=== PATIENT | female | born 1965 | race Caucasian/White ===

== ENCOUNTER 2018-03-13 13:51 | Observation (INO) | payer BC ==
--- NOTE | 2018-03-13 15:10 | RAD ---
INDICATION: Chest pain. COMPARISON: There are no relevant prior studies available for comparison. TECHNIQUE: Dual-energy PA views of the chest were obtained. FINDINGS: The heart is within normal limits in size. Mediastinal and hilar contours appear within normal limits. The lungs are clear. No pleural effusion or pneumothorax is seen. IMPRESSION: NO EVIDENCE FOR ACTIVE CARDIOPULMONARY DISEASE.
[2018-03-13] MEDS ORDERED: Aspirin 81 mg CHEW TAB* 81 MG TAB.CHEW PO ONE (15:11)
--- NOTE | 2018-03-13 15:34 | ED ---
HPI Chest Pain - HPI Summary HPI Summary: Patient is a 53-year-old male who presents emergency department for left shoulder pain and left-sided chest pain that started earlier today. 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 Pain is worse with movement. She states she did take ibuprofen which mildly improved symptoms. She denies associated shortness of breath, diaphoresis, nausea, vomiting. Medical history of obesity, hypothyroidism, hyperglycemia, high cholesterol and borderline high blood pressure. Patient states she has a strong family history for cardiac disease and her grandson father on her mother's side had a heart attack in his 30s. Symptoms are moderate in severity. Movement makes symptoms worse. Rest makes symptoms better. - History of Current Complaint Chief Complaint: EDChestWallPain Time Seen by Provider: 03/13/18 14:28 Hx Obtained From: Patient Pain Intensity: 2 - Allergy/Home Medications Home Medications: Home Medications Dapagliflozin Propanediol [Farxiga] 5 mg PO QAM 03/13/18 [History Confirmed ] Levothyroxine TAB* [Synthroid TAB*] 100 mcg PO DAILY 03/13/18 [History Confirmed 03/13/18] Simvastatin TAB(NF) [Zocor(NF)] 20 mg PO DAILY 03/13/18 [History Confirmed 03/13] PMH/Surg Hx/FS Hx/Imm Hx Previously Healthy: Yes Infectious Disease History: No Infectious Disease History: Denies: Traveled Outside the [place] in Last 30 Days - Family History Known Family History: Positive: Cardiac Disease - Social History Occupation: Employed Full-time Lives: With Family Review of Systems Constitutional: Negative Negative: Fever, Chills Positive: Chest Pain Respiratory: Negative Negative: Shortness Of Breath, Cough Gastrointestinal: Negative Positive: Other - left shoulder pain Neurological: Negative Negative: Weakness, Paresthesia, Numbness All Other Systems Reviewed And Are Negative: Yes Physical Exam Triage Information Reviewed: Yes Vital Signs On Initial Exam: Initial Vitals Temp Pulse Resp BP Pulse Ox 98.3 F 70 16 129/59 99 03/13/18 14:39 03/13/18 14:39 03/13/18 14:39 03/13/18 14:39 03/13/18 14:39 Vital Signs Reviewed: Yes Appearance: Positive: Well-Appearing - Patient sitting on bed, appears uncomfortable but nontoxic. Significant other present. Skin: Positive: Warm, Dry Head/Face: Positive: Normal Head/Face Inspection Eyes: Positive: Normal, EOMI Neck: Positive: Supple Respiratory/Lung Sounds: Positive: Clear to Auscultation, Breath Sounds Present Cardiovascular: Positive: Normal, RRR Musculoskeletal: Positive: Other - No pain with rotation of the left shoulder Diagnostics - Vital Signs Vital Signs Temp Pulse Resp BP Pulse Ox 03/13/18 14:39 98.3 F 70 16 129/59 99 - Laboratory Result Diagrams: 03/13/18 15:38 03/13/18 15:38 Lab Statement: Any lab studies that have been ordered have been reviewed, and results considered in the medical decision making process. Chest Pain Course/Dx - Course Course Of Treatment: Pt. presented with left shoulder pain radiates into her chest. Afebrile with stable vital signs. Pain is reproducible but she does have numerous risk risk factors and heart score of 4 so cardiac workup was ordered. EKG done at 1506 shows a sinus rhythm of 65 bpm, normal axis, appropriate intervals, T waves in the anterior leads, no ST elevation or depression. Patient has had no prior EKGs in system to come. To. Concerned with ischemic changes on today's EKG. Patient was given a dose of 324 mg chewable aspirin. She was moved to a monitor room and labs drawn. Remainder of labs are negative. Remainder of labs are unremarkable. Case discussed with Dr. Chen who recommends admission. I spoke with hospitalist, Dr. Joe, who has accepted pt. for admission. Results were discussed with patient and significant other. - Chest Pain Differential Diagnosis/HQI/PQRI: Acute MO, ACS, Angina - Diagnoses Provider Diagnoses: Inverted T wave, Abnormal ECG, Atypical chest pain Discharge - Sign-Out/Discharge Documenting (check all that apply): Patient Departure - Discharge Plan Condition: Stable Disposition: ADMITTED TO [facility] Referrals: Camilo Mraion [Primary Care Provider] - - Billing Disposition and Condition Condition: STABLE Disposition: Admitted to [facility]
[2018-03-13 15:44] LABS: ABS Basophils 0.1 10^3/ul (0-0.2); ABS Eosinophils 0.2 10^3/ul (0-0.6); ABS Lymphocytes 2.7 10^3/ul (1.0-4.8); ABS Monocytes 0.8 10^3/ul (0-0.8); ABS Neutrophils 5.6 10^3/ul (1.5-7.7); ABS Nucleated RBC 0 10^3/ul; Eosinophil % 1.9 % (0-6); Hematocrit 48 % (35-47); Hemoglobin 16.1 g/dl (12.0-16.0); Lymphocyte % 29.4 % (25-47); Mean Corpuscular HGB Conc 34 g/dl (31-36); Mean Corpuscular Hemoglobin 29 pg (27-31); Mean Corpuscular Volume 87 fL (80-97); Mean Platelet Volume 8.3 um3 (7.4-10.4); Nucleated Red Blood Cells % 0.3; Platelet Count 251 10^3/ul (150-450); Red Blood Count 5.48 10^6/ul (4.00-5.40); Red Cell Distribution Width 13 % (10.5-15); White Blood Count 9.3 10^3/ul (3.5-10.8)
[2018-03-13 15:53] LABS: INR 0.94 (0.77-1.02)
[2018-03-13 16:07] LABS: EGFR Non-African American 87.5 (>60)
[2018-03-13] MEDS ORDERED: oxyCODONE/Acetamin 5/325 MG* TAB PO PRN (17:35)
[2018-03-13] MEDS ORDERED: Ondansetron INJ* 2 MG/ML VIAL IV PRN (17:35)
[2018-03-13] MEDS ORDERED: Acetaminophen TAB* 325 MG PO PRN (17:35)
[2018-03-13] MEDS ORDERED: Enoxaparin(*) 40 MG/0.4 ML SYR SUBCUT SCH (18:00)
[2018-03-13] MEDS ORDERED: Atorvastatin* 10 MG TAB PO SCH (18:00)
--- NOTE | 2018-03-13 21:26 | HP ---
CC: DARIUSZ Burleson * HISTORY AND PHYSICAL: DATE OF ADMISSION: 03/13/18 PRIMARY CARE PROVIDER: DARIUSZ Burleson ATTENDING PHYSICIAN: Dr. Robles Joe * (dictated by Eleni Diop NP). CHIEF COMPLAINT: Left shoulder pain radiating to left back. HISTORY OF PRESENT ILLNESS: Ms. Pisano is a 53-year-old female with a past medical history of hyperlipidemia, obesity, hypothyroidism, and borderline diabetes mellitus, who presents to the emergency room today with complaints of chest pain. She reports that she was at work and lifting some shelving and books around 7 a.m. She immediately began experiencing 4/10 left shoulder pain radiating to the left chest and the left back. This pain was worse with movement and better with rest. Around 1300, she went to another building for work, at and at that point, she reports that the pain increased to 10/10. She took 800 mg of ibuprofen around 1200 and EMS was called by her employer around 1300. She reports that when EMS arrived, she had difficulty standing up straight due to the pain and had increased pain with breathing. She denied any actual shortness of breath, diaphoresis, nausea, or vomiting. While in the emergency room, the patient was given 324 mg of aspirin. She continued to have some pain, but reports that the pain improved after taking ibuprofen and resting. In the emergency room, she had a negative troponin and an EKG with some mild abnormalities, though there is no comparison study. Although because of her risk factors and family history, there is a concern for ACS and the Hospitalists were asked to evaluate for admission. PAST MEDICAL HISTORY: 1. Hypothyroidism. 2. Hyperlipidemia. 3. Borderline diabetes mellitus. 4. Obesity. PAST SURGICAL HISTORY: None. HOME MEDICATIONS: 1. Simvastatin 20 mg p.o. daily. 2. Levothyroxine 100 mcg p.o. daily. 3. Farxiga 10 mg p.o. daily. ALLERGIES: No known drug allergies. FAMILY HISTORY: Mother has history of diabetes and coronary artery disease. Father has history of prostate cancer and Parkinson's. Maternal grandfather had multiple MIs with the first in his 30s. SOCIAL HISTORY: The patient denies any tobacco, alcohol, or recreational drug use. She works as a teacher. She lives with her boyfriend. The patient's boyfriend, Brandy Vickers, will be her surrogate decision in the event she is unable to make her own decisions. REVIEW OF SYSTEMS: An 11-point review of systems was performed and all the pertinent positive and negative findings are in the HPI. All remaining systems are negative. PHYSICAL EXAMINATION GENERAL: Ms. Pisano is a well-developed, well-nourished overweight middle- aged white woman sitting in bed, in no acute distress. She appears her stated age. VITAL SIGNS: Temp 98.3, heart rate 74, respiratory rate 19, oxygen saturation 99 % on room air, blood pressure 143/79. HEENT: Head is normocephalic, atraumatic. Visual gasca are grossly intact. Pupils are equal, round, and reactive to light and accommodation. Oral mucous membranes are moist and without lesions. NECK: Full range of motion. Thyroid not palpable. Trachea midline. No lymphadenopathy. RESPIRATORY: Symmetrical chest expansion. No chest wall deformities. Lungs are clear to auscultation throughout. No rhonchi, wheezes, or rubs. No accessory muscle use. CARDIOVASCULAR: Regular rate and rhythm. S1, S2 present. No murmurs, rubs, or gallops. ABDOMEN: Soft, nontender to palpation. Bowel sounds normoactive active x4. No bruits appreciated. EXTREMITIES: Skin is warm and smooth bilaterally. No edema. No clubbing or cyanosis. Pedal pulses 2+ bilaterally. MUSCULOSKELETAL: Full range of motion. Significant pain on palpation to the left upper back, left shoulder, left axilla and left upper chest. Otherwise, no pain or deformities throughout. NEUROLOGIC: Awake, alert and oriented x4. Cranial nerves II through XII grossly intact in lower extremities. Moves all extremities. SKIN: Grossly intact throughout. DIAGNOSTIC STUDIES/LABORATORY DATA: WBC 9.3, RBC 5.48, hemoglobin 16.1, hematocrit 48, and platelets 251. INR 0.94. D-dimer less than 200. Sodium 138 , potassium 4.1, chloride 102, carbon dioxide 28, BUN 14, creatinine 0.70, glucose 113. Troponin 0.01. Chest x-ray reveals no evidence for acute cardiopulmonary disease. EKG personally reviewed shows normal sinus rhythm with a rate of 65. Inverted T - waves in V1, V2, V3. Mild ST depression in II, V3 through V6. ASSESSMENT AND PLAN: Ms. Pisano is a 53-year-old female with a past medical history of hypothyroidism, obesity, hyperlipidemia, and borderline diabetes, who presented to the emergency room today with complaints of chest pain. The patient will be admitted as observation for: 1. Chest pain. This pain does appear to be likely musculoskeletal as the pain is reproducible on exam, although acute coronary syndrome cannot be ruled out because of her risk factors and family history. She will be on telemetry monitoring. I will continue to trend her troponins x2. I will recheck an EKG in the morning. We will stress test her in the morning. She can have Tylenol or Percocet for pain. 2. Hyperlipidemia. Continue simvastatin. 3. Hypothyroidism. Continue levothyroxine. 4. Borderline diabetes mellitus. I will hold her Farxiga at this time. I will place her on fingersticks a.c., but I am not going to order any sliding scale coverage at this point. 5. Fluid, electrolyte, nutrition. The patient can have a heart-healthy diet. She will be n.p.o. after midnight for her stress test. 6. Code status. The patient will be a full code. 7. DVT prophylaxis. According to the DVT risk assessment, the patient scores a 2 making her moderate risk. I will place her on Lovenox. TIME SPENT: Approximately 50 minutes were spent on this admission, greater than half of that spent with the patient obtaining my history, performing my physical examination, and reviewing the plan of care. The case has been reviewed with my attending, Dr. Joe, who is in agreement with the plan of care. ELENI DIOP NP [id number]/[facility] #: [id number] REBECA
[2018-03-14 05:28] LABS: ABS Basophils 0.1 10^3/ul (0-0.2); ABS Eosinophils 0.3 10^3/ul (0-0.6); ABS Lymphocytes 2.8 10^3/ul (1.0-4.8); ABS Monocytes 0.7 10^3/ul (0-0.8); ABS Nucleated RBC 0 10^3/ul; Eosinophil % 3.7 % (0-6); Hematocrit 44 % (35-47); Hemoglobin 14.6 g/dl (12.0-16.0); Lymphocyte % 40.3 % (25-47); Mean Corpuscular HGB Conc 33 g/dl (31-36); Mean Corpuscular Hemoglobin 29 pg (27-31); Mean Corpuscular Volume 88 fL (80-97); Mean Platelet Volume 8.6 um3 (7.4-10.4); Nucleated Red Blood Cells % 0.1; Platelet Count 227 10^3/ul (150-450); Red Blood Count 4.99 10^6/ul (4.00-5.40); Red Cell Distribution Width 13 % (10.5-15); White Blood Count 6.8 10^3/ul (3.5-10.8)
[2018-03-14 05:43] LABS: EGFR Non-African American 83.4 (>60)
[2018-03-14] MEDS ORDERED: Levothyroxine TAB* 100 MCG TAB PO SCH (06:00)
[2018-03-14] MEDS ORDERED: DAPAGLIFLOZIN PROPANEDIOL 10 MG PO SCH (09:30)
[2018-03-14] MEDS ORDERED: Regadenoson* 0.4 MG/5 ML SYRINGE ONE (13:32)
--- NOTE | 2018-03-14 15:00 | RAD ---
Edited for charges. INDICATION: Chest pain. COMPARISON: No relevant prior exams available on the [facility] for comparison. TECHNIQUE: 10.800 mCi of Tc-99m Myoview were administered IV. SPECT images of the heart were obtained. Later on the same day. Under the direction of Dr. Mitchell, an exercise stress test was performed. The patient achieved a peak heart rate of 109 bpm, 65 % of the age- predicted maximum. Subsequently, the patient was given an IV injection of 25.700 mCi Tc- 99m Myoview. SPECT images of the heart were obtained and a gated wall motion study was performed. FINDINGS: Gated wall motion images were obtained at stress and demonstrate hypokinesia at the apex and apical septal, inferior, and lateral wall segments. The calculated left ventricular ejection fraction is 60 % at stress. Estimated LEFT ventricular end diastolic volume is 72 mL. TID 0.94. There is mild fixed myocardial thinning at the apex and anterior apical and anterior septal segments. No stress-induced reversible perfusion defect evident to indicate ischemia. IMPRESSION: #. There is mild fixed myocardial thinning at the apex and anterior apical and anterior septal segments with corresponding mild hypokinesia. #. No compelling evidence for stress-induced ischemia however assessment is limited due to submaximal exercise stress test. #. Normal range estimated LEFT ventricular ejection fraction. ASSESSMENT: Low risk based on nuclear portion. Based on imaging criteria from ACC/AHA 2002 Guideline Update for the Management of Patients With Chronic Stable Angina Table 23. Noninvasive Risk Stratification. MTDD
--- NOTE | 2018-03-14 15:18 | PN ---
Subjective Date of Service: 03/14/18 Interval History: Ms. Pisano is feeling well today. Still having some left sided chest, back, axilla pain which is worse with movement. Tele uneventful overnight. Wants to be discharged. Family History: Unchanged from Admission Social History: Unchanged from Admission Past Medical History: Unchanged from Admission Objective Active Medications: Acetaminophen (Tylenol Tab*) 650 mg PO Q4H PRN Atorvastatin Calcium (Lipitor*) 10 mg PO QPM SUNDAY Enoxaparin Sodium (Lovenox(*)) 40 mg SUBCUT Q24H SUNDAY Levothyroxine Sodium (Synthroid Tab*) 100 mcg PO DAILY@0600 SUNDAY Pto: Dapagliflozin Propanediol [Farxiga ] 10 Mg 10 mg PO QAM SUNDAY Ondansetron HCl (Zofran Inj*) 4 mg IV Q4H PRN Oxycodone/Acetaminophen (Percocet 5/325 Tab*) 1 tab PO Q4H PRN Vital Signs - 8 hr 03/14/18 07:40 Temperature 97.5 F Pulse Rate 59 Respiratory 20 Rate Blood Pressure 145/48 (mmHg) O2 Sat by Pulse 100 Oximetry Oxygen Devices in Use Now: None Appearance: Middle-aged woman sitting in bed in no acute distress. Eyes: No Scleral Icterus, PERRLA Ears/Nose/Mouth/Throat: NL Teeth, Lips, Gums, Mucous Membranes Moist Neck: NL Appearance and Movements; NL JVP Respiratory: Symmetrical Chest Expansion and Respiratory Effort, Clear to Auscultation Cardiovascular: NL Sounds; No Murmurs; No JVD, RRR, No Edema, - - CP reproducible on palpation of left back, axilla, and chest Abdominal: NL Sounds; No Tenderness; No Distention Extremities: No Edema Skin: No Rash or Ulcers Neurological: Alert and Oriented x 3 Lines/Tubes/Other Access: Clean, Dry and Intact Peripheral IV Result Diagrams: 03/14/18 05:18 03/14/18 06:50 Assess/Plan/Problems-Billing Assessment: Ms. Pisano is a 53 year old female with PMH of HLD, borderline DM, hypothyroidism, and obesity, who presented to the ED on 03/13/18 with c/o chest pain which was reproducible on exam. - Patient Problems (1) Chest pain Current Visit: Yes Status: Acute Priority: High Code(s): R07.9 - CHEST PAIN, UNSPECIFIED SNOMED Code(s): 36662749 Comment: - Still having pain which is worse with movement and reproducible on exam - No EKG changes this morning - Negative trops x3 - Nuclear stress test today shows low risk (2) HLD (hyperlipidemia) Current Visit: Yes Status: Chronic Priority: Medium Code(s): E78.5 - HYPERLIPIDEMIA, UNSPECIFIED SNOMED Code(s): 44145558 Comment: - Simvastatin (3) Borderline diabetes mellitus Current Visit: Yes Status: Chronic Priority: Medium Code(s): R73.03 - PREDIABETES SNOMED Code(s): 390865127 Comment: - Farxiga (4) Obesity Current Visit: Yes Status: Chronic Priority: Medium Code(s): E66.9 - OBESITY, UNSPECIFIED SNOMED Code(s): 784803433 Comment: - Weight counseling (5) Hypothyroidism Current Visit: Yes Status: Chronic Priority: Medium Code(s): E03.9 - HYPOTHYROIDISM, UNSPECIFIED SNOMED Code(s): 35424828 Comment: - Levothyroxine (6) Full code status Current Visit: Yes Status: Acute Code(s): Z78.9 - OTHER SPECIFIED HEALTH STATUS SNOMED Code(s): 198237800 (7) DVT prophylaxis Current Visit: Yes Status: Acute Code(s): DHN8238 - SNOMED Code(s): 912083774 Comment: - Lovenox Status and Disposition: D/c home today.
[2018-03-14 16:24] VITALS: BP 143/61
--- NOTE | 2018-03-15 17:15 | DS ---
AMENDED REPORT NOW INCLUDES COSIGNER DESIGNATION - ESIGNED BEFORE ADJUSTMENT CC: PERICO Burleson * DISCHARGE SUMMARY: DATE OF ADMISSION: 03/13/18 DATE OF DISCHARGE: 03/14/18 ATTENDING PHYSICIAN: Dr. Bola Hoff * (dictated by Eleni Diop NP). PRIMARY CARE PROVIDER: PERICO Burleson. PRIMARY DIAGNOSIS: 1. Chest pain. SECONDARY DIAGNOSES: 1. Hypothyroidism. 2. Hyperlipidemia. 3. Borderline diabetes mellitus. 4. Obesity. STUDIES WHILE IN THE HOSPITAL: 1. Chest x-ray on 03/13/18 reads as no evidence for active cardiopulmonary disease. 2. Stress test on 03/14/18 reads as there is mild fixed myocardial thinning at the apex and anterior apical and anterior septal segments with corresponding mild hypokinesia. No compelling evidence for stress-induced ischemia; however, assessment is limited due to submaximal exercise stress test and normal range estimated left ventricular ejection fraction. Assessment is low-risk based on nuclear portion. DISCHARGE MEDICATIONS: New home medication: 1. Tramadol 25 mg p.o. q.6 hours p.r.n. Continued home medications: 1. Farxiga 10 mg p.o. daily. 2. Levothyroxine 100 mcg p.o. daily. 3. Simvastatin 20 mg p.o. daily. Changed home medications: None. Discontinued home medications: None. HISTORY OF PRESENT ILLNESS AND HOSPITAL COURSE: Ms. Pisano is a 53-year-old female with a past medical history of hypothyroidism, hyperlipidemia, borderline diabetes mellitus, and obesity who presented to the emergency room on 03/13/18 with complaints of chest pain. Please see my history and physical for a complete summary of the events leading up to this hospitalization, but in short she was at work lifting some shelving and books and began to experience left chest, axilla, and back pain, which was worse with movement, better with rest. The pain was significantly relieved with 800 mg of ibuprofen and rest. Once arriving to the emergency room, she denied any shortness of breath, diaphoresis, nausea, or vomiting. The pain was reproducible on exam by palpation and movement of the left arm. While in the emergency room, she was given 324 mg of aspirin. She had 1 negative troponin and an EKG with some mild abnormalities showing normal sinus rhythm with a rate of 65; inverted T-waves in V1, V2, and V3; and mild ST depression in II, V3 through V6. Because of her risk factors and her EKG abnormalities, she was admitted for observation. She had an uneventful night. She had 2 additional troponins, which were 0.00. She had a repeat EKG this morning with no significant changes from the prior EKG. She had a nuclear stress test on the day of discharge, results are mentioned above, but the assessment was low risk. Ms. Pisano is stable for discharge to home today. Vital signs are as follows : Temp 98.0, heart rate 64, respiratory rate 16, oxygen saturation 99% on room air, blood pressure 143/61. DISCHARGE PLAN: Ms. Pisano will be discharged to home. Activity will be as tolerated. She can return to work, although she should avoid any heavy lifting or strenuous activity. Diet will be heart healthy. She was given a new prescription for tramadol to help manage the musculoskeletal pain in her left chest and left back. She should follow up with her primary care provider early next week and any further workup or diagnostic can be discussed with the PCP at that time. The patient should return to this emergency room or the nearest hospital if she experiences any worsening of symptoms, shortness of breath, lightheadedness, dizziness, increasing chest discomfort, fevers, chills, night sweats, loss of consciousness, or any other worrisome signs or symptoms. This is a summarized report of a complex medical history and hospital stay. For further details, please see the entire medical record. TIME SPENT: Approximately 50 minutes was spent on this discharge, greater than half of that time spent [id number] with the patient discussing the discharge plans and instructions. The case has been reviewed with my attending, Dr. Hoff, who is in agreement with the plan of care. ELENI DIOP, WEB PR[employer] OPERATOR [id number]/[facility] #: [id number] REBECA
== END 2018-03-14 16:15 | disposition home or self-care (01) ==
LOC: ED 13:51 → MEDTELE 18:20
PROVIDERS: ADMIT Student in an Organized Health Care Education/Training Program; ATTEND Internal Medicine
DX: R07.9 Chest pain, unspecified (principal); E03.9 Hypothyroidism, unspecified; E78.5 Hyperlipidemia, unspecified; E11.9 Type 2 diabetes mellitus without complications; R94.31 Abnormal electrocardiogram [ECG] [EKG]; E66.9 Obesity, unspecified; Z79.899 Other long term (current) drug therapy
CPT/HCPCS: 36415; 71045; 78452; 80048; 80053; 84484; 85025; 85379; 85610; 93005; 93017; 96372; 99282; A9270-GY; A9502; G0378; J1650; J2785